=== PATIENT | female | born 1955 | race Caucasian/White ===

== ENCOUNTER 2017-05-10 06:25 | Day surgery (SDC) | payer BC ==
[~2017-05-10] VITALS: Ht 162.6 cm; Wt 81.8 kg
--- NOTE | ~2017-05-10 | HP ---
PATIENT: TIFFANY MCKEON MEDICAL RECORD: [id number] ACCOUNT: [id number] LOCATION:D.CASTRO : 53 ADMISSION DATE: 05/10/17 HISTORY AND PHYSICAL EXAMINATION Preoperative History and Physical HISTORY OF PRESENT ILLNESS: Tiffany Mckeon is a 61-year-old female with a right parotid mass. She is being admitted for right parotidectomy. PAST MEDICAL HISTORY: Includes hypertension, hypothyroidism and thyroid cancer. PAST SURGICAL HISTORY: Includes thyroidectomy. CURRENT MEDICATIONS: Lisinopril, Synthroid, oxybutynin, Lexapro and indomethacin. ALLERGIES: No known drug allergies. PHYSICAL EXAMINATION: GENERAL: Healthy appearing, normal voice. FACE: Normal, symmetric. No lesions. EYES: Sclerae and conjunctivae are normal. EARS: Canals and TMs normal. NOSE: No mass, polyps, or drainage. ORAL CAVITY AND OROPHARYNX: Tongue protrudes in midline. Pharynx is normal. NECK: She has a right tail of parotid mass about 1.5 cm in size. No other masses or adenopathy. CHEST: Clear. CARDIOVASCULAR: Regular rate and rhythm. No murmur. EXTREMITIES: Normal. IMPRESSION: Right parotid mass, possible adenopathy. PLAN: Right parotidectomy, excision of the mass, frozen section and path. TRANSINT:[id number] Voice Confirmation ID: [id number] DOCUMENT ID: [id number] NISHANT ADAMS MD CC: [id number] DICTATION DATE: 05/07/17 140 NEWS ANALYST: 05/07/17 1451 PRE [facility] [address] [place] [address]
--- NOTE | ~2017-05-10 | OP ---
PATIENT NAME: TIFFANY CLOUD MEDICAL RECORD: [id number] :53 LOCATION:D.[facility].2204 ADMISSION DATE: SURGEON: NISHANT ADAMS MD DATE OF OPERATION: 05/10/2017 PREOPERATIVE DIAGNOSIS: Right parotid mass. POSTOPERATIVE DIAGNOSIS: Right parotid mass. PROCEDURE: Right superficial parotidectomy. SURGEON: Nishant Adams MD ANESTHESIA: General orotracheal. BLOOD LOSS: Less than 5 cc. SPECIMENS: Right parotid with mass. COMPLICATIONS: None. DISPOSITION: Recovery stable. FINDINGS: Frozen section consistent with dense lymphocytic infiltrate. Pathologist did not feel like this represented a primary parotid tumor such as Obey's and we are proceeding to evaluate it for possible lymphoma. DRAINS: A single drain through a separate stab incision inferior to the wound. DESCRIPTION OF PROCEDURE: She is brought to the operating room and placed in supine position, sedated and intubated by anesthesia. The head was turned to the left. The right face and neck were prepped and draped in the usual sterile fashion. The incision line was injected with a total of less than 1 cc of 1% lidocaine with 1:100,000 epinephrine on a long 27-gauge needle. Incision was marked along the preauricular region posteriorly and then down skin crease in her neck well below the angle of mandible. An incision was made with a 15 blade down through the skin and then spatula tip cautery was used to further dissection down to the parotid fascia. Flaps were elevated anteriorly using Brittaney rakes and long Metzenbaum scissors. Then, dissection was taken down on to the sternocleidomastoid posteriorly and the gland from the tragal cartilage. Then, 3 separate 2-0 silk stick ties were used, 2 anteriorly on the flap and one on the earlobe for retraction sutures. Greater auricular nerve was divided sharply with scissors. Gland was dissected anteriorly from the sternocleidomastoid muscle and then started looking for the nerve dissecting forward into the gland with a tonsil clamp. The nerve was identified, followed inferiorly, and then with a nerve stimulator on lowest setting confirmed there was a marginal branch that I followed through the gland the tumor mass inferiorly dividing the parotid gland well above that. Once the marginal branch was followed and completely through the body of the parotid gland, it was dissected off inferiorly and sent for frozen. Frozen section returned consistent with lymphocytic infiltrate, possibly lymphoma. Another lymph node was just at the mastoid that was separate from the gland that was sent for path as well. It was very small, maybe 6 mm in size. The wound was irrigated with saline. The drain was placed through a separate stab incision inferior to the wound. The wound was closed using interrupted subcutaneous 3-0 Vicryl to OPERATIVE REPORT [id number] TIFFANY CLOUD reapproximate the skin and then a running 6-0 Prolene was used to close the skin. She was awakened and transported to recovery in good condition. No complications. TRANSINT:[id number] Voice Confirmation ID: [id number] DOCUMENT ID: [id number] NISHANT ADAMS MD CC: [id number] DICTATION DATE: 05/10/17 1320 ELECTRICIAN OUTSIDE: 05/10/17 1342 [facility] [address] [place] [address]
[2017-05-10 07:01] LABS: HEMATOCRIT 41.4 % (36.0-48.0); HEMOGLOBIN 14.2 g/dL (12-16); MCH 30.4 pg (26.0-34.0); MCHC 34.3 g/dL (31.0-37.0); MCV 88.7 fL (80.0-100.0); MEAN PLATELET VOLUME 9.2 fL (7.4-10.4); RBC 4.67 10x6/uL (4.00-5.40); RDW 13.1 % (11.5-14.5); WBC 10.9 10x3/uL (4.8-10.8)
[2017-05-10] MEDS ORDERED: SYNTHROID100 MCG PO (07:08)
[2017-05-10] MEDS ORDERED: LISINOPRIL-HCTZ1 T13 PO (07:08)
[2017-05-10] MEDS ORDERED: LEXAPRO10 MG (07:09)
[2017-05-10] MEDS ORDERED: OXYBUTYNIN CHLOR5 MG PO (07:09)
[2017-05-10] MEDS ORDERED: ZYLOPRIM300 MG PO (07:10)
[2017-05-10] MEDS ORDERED: INDOCIN25 MG PO (07:11)
[2017-05-10 07:19] VITALS: BP 131/70; BMI 30.9
[2017-05-10 07:19] LABS: CALC OSMOLALITY 282 mosm/kg (275-300); CALCIUM 9.1 mg/dL (8.5-10.1); CARBON DIOXIDE 33.5 mmol/L (21.0-32.0); CHLORIDE - SERUM 102 mmol/L (98-107); CREATININE - SERUM 0.8 mg/dL (0.6-1.3); GLUCOSE 114 mg/dL (74-106); POTASSIUM - SERUM 3.5 mmol/L (3.5-5.1); SODIUM 141 mmol/L (136-145); UREA NITROGEN 16 mg/dL (7-18); eGFR NON AFRICAN AMERICAN 77 mL/min (90-120)
[2017-05-10 14:34] VITALS: BP 156/76
--- NOTE | 2017-05-10 14:42 | NUR ---
FROM PACU. RIGHT NECK INCISION CDI. DELMA RIGHT NECK WITH MINIMAL DRAINAGE.FAMILY AT BEDSIDE.CALL LIGHT IN REACH. VSS SEE GRAPHICS.
--- NOTE | 2017-05-10 14:45 | NUR ---
PATIENT TO ROOM AT THIS TIME WITH VS STABLE. IV INTACT. NO COMPLAINTS. DELMA DRAIN INTACT. INCISION TO RIGHT NECK CDI. WILL CONTINUE TO MONITOR. O2 ON AT 2 L NC. CALL LIGHT WITHIN REACH.
[2017-05-10 14:46] VITALS: BP 150/80; Ht 162.6 cm; Wt 81.8 kg
--- NOTE | 2017-05-10 15:30 | NUR ---
PATIENT IN BED EYES CLOSED RESTING QUIETLY. IV INTACT. NO COMPLAINTS OR SIGNS OF DISTRESS. VS STABLE. CALL LIGHT WITHIN REACH. FAMILY AT BEDSIDE.
--- NOTE | 2017-05-10 16:30 | NUR ---
TRIED TO TAKE O2 OFF AND LEAVE OFF. UNABLE TO BC WHEN PATIENT SLEEPING SATS DROP INTO UPPER 80'S. O2 BACK ON. VS STABLE. NO COMPLAINTS. CALL LIGHT WITHIN REACH.
--- NOTE | 2017-05-10 17:30 | NUR ---
PATIENT TOLERATED REGULAR DIET WITH NO PROBLEMS AT THIS TIME. IV INTACT. NO COMPLAINTS. VS MACHINE REMOVED. VITALS LOST DUE TO VS MACHINE UNPLUGGED. ALL VS WERE STABLE DURING POST OP. PATIENT HAS NO COMPLAINTS AT THIS TIME. CALL LIGHT WITHIN REACH.
--- NOTE | 2017-05-10 19:20 | NUR ---
PT IS SITTING UP IN BED VISITING WITH SP, STATED NO PAIN RIGHT NOW JUST ANNOYING FEELING IN NECK. NO SIGNS OF DISTRESS. BED IN LOW POSITION, CALL LIGHT IN REACH
--- NOTE | 2017-05-11 02:00 | NUR ---
PT IN BED WITH NO DISTRESS. RESPIRATIONS ARE EVEN AND UNLABORED. SIDE RAILS X 2. BED IS LOW. CALL LIGHT IN REACH.
[2017-05-11 04:00] VITALS: BP 120/79
[2017-05-11] MEDS ORDERED: HYDROCODON-ACE1 EAC7 PO (08:28)
[2017-05-11 08:31] VITALS: BP 131/73
== END 2017-05-11 12:07 | disposition home or self-care (01) ==
LOC: D.OPS 06:25 → D.PAN 08:15 → D.OPS 08:15 → D.MS 13:18 → D.OPS 05-11 12:07
PROVIDERS: Anesthesiology
DX: R22.0 Localized swelling, mass and lump, head (principal); I10 Essential (primary) hypertension; E03.9 Hypothyroidism, unspecified; Z85.850 Personal history of malignant neoplasm of thyroid; Z01.812 Encounter for preprocedural laboratory examination